=== PATIENT | male | born 1950 | race Caucasian/White ===

== ENCOUNTER 2018-01-14 07:45 | Day surgery (SDC) | payer MEDICARE, MEDICAID ==
[~2018-01-14 07:45] MED LIST: BALANCED SALT IRRIG SOLN COMB1 500 ML, EPINEPHRINE-PF 1:1000 0.5 MG IO ONE
[2018-01-14] MEDS ORDERED: IV NORMAL SALINE 1000 ML BAG IV ONE (07:46)
[2018-01-14] MEDS ORDERED: MOXIFLOXACIN HCL 3 ML OPHT DROPS ONE (07:50)
[2018-01-14] MEDS ORDERED: ACETYLCHOLINE CHLORIDE 1% OPHT 1 EA KIT ONE (07:50)
[2018-01-14] MEDS ORDERED: LIDOCAINE-MPF 2% 5 ML VIAL ONE (07:50)
[2018-01-14] MEDS ORDERED: NEO/POLYMYX B/DEXAME OPHT OINT 3.5 GM TUBE ONE (07:50)
[2018-01-14] MEDS ORDERED: BALANCED SALT IRRIG SOLN COMB2 15 ML IRRIG.SOLN ONE (07:50)
[2018-01-14] MEDS ORDERED: TETRACAINE HCL 0.5% OPHT DROP 2 ML BOTTLE ONE (07:50)
[2018-01-14] MEDS ORDERED: TIMOLOL MALEATE 0.5% OPHT DROP 5 ML BOTTLE ONE (07:50)
[2018-01-14] MEDS ORDERED: BALANCED SALT IRRIG SOLN COMB1 0 ML ONE (07:51)
[2018-01-14] MEDS ORDERED: HYALURONATE SODIUM 12.8 MG/0.8 ML DISP.SYRIN ONE (07:51)
[2018-01-14] MEDS ORDERED: BUPIVACAINE PF 0.5% 30 ML VIAL ONE (07:51)
[2018-01-14] MEDS ORDERED: HYALURONATE SODIUM 8.5 MG/0.85 ML DISP.SYRIN ONE (07:51)
[2018-01-14] MEDS ORDERED: HYALURONIDASE,OVINE 200 UNITS/ML VIAL ONE (07:51)
[2018-01-14] MEDS ORDERED: CIPROFLOXACIN 0.3% OPHT DROP 2.5 ML BOTTLE ONE (07:55)
[2018-01-14] MEDS ORDERED: TROPICAMIDE 1% OPHT DROP 3 ML BOTTLE ONE (07:55)
[2018-01-14] MEDS ORDERED: KETOROLAC 0.5% OPHT DROP 3 ML BOTTLE ONE (07:55)
[2018-01-14] MEDS ORDERED: PHENYLEPHRINE 2.5% OPHT DROP 2 ML BOTTLE ONE (07:56)
[2018-01-14] MEDS ORDERED: CYCLOPENTOLATE 1% OPHT DROP 2 ML BOTTLE ONE (07:56)
[2018-01-14] MEDS ORDERED: FENTANYL CITRATE 100 MCG/2 ML AMPUL ONE (08:20)
[2018-01-14] MEDS ORDERED: ALBUTEROL SULFATE 2.5 MG/3 ML NEBU ONE (08:23)
[2018-01-14] MEDS ORDERED: TRYPAN BLUE 0.5 ML DISP.SYRIN ONE (10:13)
== END 2018-01-14 12:25 | disposition home or self-care (01) ==
LOC: DS 07:45
PROVIDERS: ATTEND Ophthalmology
DX: H25.11 Age-related nuclear cataract, right eye (principal); J44.9 Chronic obstructive pulmonary disease, unspecified; K21.9 Gastro-esophageal reflux disease without esophagitis; M16.0 Bilateral primary osteoarthritis of hip; Z88.8 Allergy status to other drugs, medicaments and biological substances
CPT/HCPCS: 94664; A4663; J0171; J3010; J3471; J3490; J7030; J7120; J7321; J8499; Q9968; V2632

== ENCOUNTER 2018-03-25 06:24 | Day surgery (SDC) | payer MEDICARE, MEDICAID ==
[2018-03-25] MEDS ORDERED: IV LACTATED RINGERS SOLUTION 1,000 ML BAG IV ONE (06:25)
[2018-03-25] MEDS ORDERED: ONDANSETRON 4 MG/2 ML VIAL IV ONE (06:25)
[2018-03-25] MEDS ORDERED: CIPROFLOXACIN 0.3% OPHT DROP 2.5 ML BOTTLE ONE (06:33)
[2018-03-25] MEDS ORDERED: KETOROLAC 0.5% OPHT DROP 3 ML BOTTLE ONE (06:33)
[2018-03-25] MEDS ORDERED: PHENYLEPHRINE 2.5% OPHT DROP 2 ML BOTTLE ONE (06:34)
[2018-03-25] MEDS ORDERED: CYCLOPENTOLATE 1% OPHT DROP 2 ML BOTTLE ONE (06:34)
[2018-03-25] MEDS ORDERED: TROPICAMIDE 1% OPHT DROP 3 ML BOTTLE ONE (06:34)
[2018-03-25] MEDS ORDERED: BALANCED SALT IRRIG SOLN COMB1 500 ML, EPINEPHRINE-PF 1:1000 0.5 MG IO ONE ×2 (07:00)
[2018-03-25] MEDS ORDERED: MOXIFLOXACIN HCL 3 ML OPHT DROPS ONE (07:14)
[2018-03-25] MEDS ORDERED: LIDOCAINE-MPF 2% 5 ML VIAL ONE (07:14)
[2018-03-25] MEDS ORDERED: TIMOLOL MALEATE 0.5% OPHT DROP 5 ML BOTTLE ONE (07:14)
[2018-03-25] MEDS ORDERED: BALANCED SALT IRRIG SOLN COMB2 15 ML IRRIG.SOLN ONE (07:15)
[2018-03-25] MEDS ORDERED: NEO/POLYMYX B/DEXAME OPHT OINT 3.5 GM TUBE ONE (07:15)
[2018-03-25] MEDS ORDERED: ACETYLCHOLINE CHLORIDE 1% OPHT 1 EA KIT ONE (07:15)
[2018-03-25] MEDS ORDERED: TETRACAINE HCL 0.5% OPHT DROP 2 ML BOTTLE ONE (07:15)
[2018-03-25] MEDS ORDERED: HYALURONATE SODIUM 12.8 MG/0.8 ML DISP.SYRIN ONE (07:16)
[2018-03-25] MEDS ORDERED: HYALURONATE SODIUM 8.5 MG/0.85 ML DISP.SYRIN ONE (07:16)
[2018-03-25] MEDS ORDERED: HYALURONIDASE,OVINE 200 UNITS/ML VIAL ONE (07:16)
[2018-03-25] MEDS ORDERED: BUPIVACAINE 0.25% 30 ML VIAL ONE (07:50)
[2018-03-25] MEDS ORDERED: ATROPINE SULFATE 1% OPHT DROP 2 ML ONE (07:53)
[2018-03-25] MEDS ORDERED: FENTANYL CITRATE 100 MCG/2 ML AMPUL ONE (07:56)
== END 2018-03-25 11:15 | disposition home or self-care (01) ==
LOC: DS 06:24
PROVIDERS: ATTEND Ophthalmology
DX: H25.11 Age-related nuclear cataract, right eye (principal); K21.9 Gastro-esophageal reflux disease without esophagitis; Z79.899 Other long term (current) drug therapy; Z98.890 Other specified postprocedural states; M19.90 Unspecified osteoarthritis, unspecified site; J43.9 Emphysema, unspecified; D64.9 Anemia, unspecified
CPT/HCPCS: 66984; J0171; J2405; J3010; J3471; J3490; J7120 ×2; J7321 ×2; V2632; A4663